=== PATIENT | male | born 1945 | race Caucasian/White ===

== ENCOUNTER 2017-03-12 10:52 | Outpatient (CLI) | payer MEDICARE, BC ==
--- NOTE | 2017-03-12 13:16 | RAD ---
LUMBAR SPINE FOUR VIEWS: History: 71-year-old male with low back pain and lumbar radiculopathy. FINDINGS: Laminectomy changes at L3 through L5. No evidence for abnormal translation between flexion and exten soto. No acute fracture. IMPRESSION: Lower lumbar spine laminectomy. No abnormal translation between flexion and extension. Lumbar spondy losis. No acute fracture. POS: [facility]
== END 2017-03-12 10:53 | disposition home or self-care (01) ==
LOC: SCSRAD 10:52
PROVIDERS: ATTEND Surgery
DX: M47.26 Other spondylosis with radiculopathy, lumbar region (principal); Z98.890 Other specified postprocedural states
CPT/HCPCS: 72120

== ENCOUNTER 2017-05-10 09:51 | Outpatient (CLI) | payer MEDICARE, BC ==
--- NOTE | 2017-05-10 11:58 | RAD ---
TWO VIEWS OF THE LEFT HIP: DTAE: 05/10/17. COMPARISON: None. HISTORY: Pain radiating through the legs, pain. FINDINGS: There are severe degenerative changes involving the left hip. There is femoral head flattening on th e left with severe left hip joint space narrowing as well as osteophyte formation and subchondral scl erosis involving the acetabular roof and the femoral head. There is no displaced fracture or evidenc e of dislocation seen. IMPRESSION: Severe degenerative changes of the left hip. No displaced fracture or evidence of dislocation seen. POS: [facility]
--- NOTE | 2017-05-10 11:59 | RAD ---
2 VIEWS RIGHT HIP: Date: 05/10/17 COMPARISON: None. HISTORY: Pain, radiculopathy. FINDINGS: There is severe degenerative change involving the right hip with complete loss of joint space and sig nificant flattening of the femoral head with subchondral sclerosis and lucency. There is osteophyte f ormation and subchondral sclerosis of the acetabular roof. The abnormal density and flattening of the right femoral head may signify associated a vascular necrosis. IMPRESSION: Severe degenerative change of the right hip. Possible avascular necrosis of the right femoral head. POS: [facility]
--- NOTE | 2017-05-10 12:03 | RAD ---
4 VIEWS LEFT KNEE: Date: 05/19/17 COMPARISON: None. HISTORY: Left knee pain that radiates down through both legs. FINDINGS: Four views of the left knee show no evidence of acute fracture or dislocation. Calcification is seen in the menisci, consistent with CPPD. No significant osteophytes are seen in any of the three compart ments. IMPRESSION: 1. Calcifications of menisci can be seen with CPPD. 2. No evidence of acute osseous abnormality of the left knee. POS: [facility]
--- NOTE | 2017-05-10 12:08 | RAD ---
FOUR VIEWS OF THE RIGHT KNEE: HISTORY: Right knee pain. COMPARISON: None. FINDINGS: Four views of the right knee show no evidence of acute fracture or dislocation. There is calcificati on in the menisci, consistent with CPPD. There are moderate tricompartmental osteophytes, consistent with osteoarthritis. IMPRESSION: 1. Moderate right knee osteoarthritis. 2. Calcium pyrophosphate deposition disease. POS: [facility]
== END 2017-05-10 09:52 | disposition home or self-care (01) ==
LOC: TBSIIMAG 09:51
PROVIDERS: ATTEND Surgery
DX: M25.551 Pain in right hip (principal); M25.552 Pain in left hip; M79.604 Pain in right leg; M79.605 Pain in left leg; M17.11 Unilateral primary osteoarthritis, right knee; M16.0 Bilateral primary osteoarthritis of hip; M25.862 Other specified joint disorders, left knee

== ENCOUNTER 2017-05-20 09:08 | Outpatient (CLI) | payer MEDICARE, BC ==
--- NOTE | 2017-05-20 11:29 | MRI ---
MRI CERVICAL SPINE WITHOUT CONTRAST: Date: 05/20/17 Multiplanar, multisequential imaging cervical spine obtained. HISTORY: Cervical pain. Spondylosis. FINDINGS: The cervical vertebra maintain height. There is mild posterior subluxation at C4-5 and slightly more prominent posterior subluxation at C5-6 measured at approximately 5.0 mm. Loss of disc space noted at C4-5, C5-6, and C6-7. Anterior osteophytes are prominent at C4-5 and C5-6. At C2-3, posterior disc bulge flattens the thecal sac and mildly effaces the anterior subarachnoid s pace. At C3-4, posterior disc bulge and spondylosis abuts the anterior cord. Mild left foraminal narrowing due to uncinate hypertrophy. At C4-5, disc bulge and spondylosis impinges on and mildly indents and flattens the anterior cord. Ri ght foraminal stenosis secondary to facet and uncinate hypertrophy and mild left foraminal encroachme nt. At C5-6, disc bulge and spondylosis impinge on and indent the anterior cord. Bilateral foraminal sten osis due to hypertrophic change. At C6-7, disc bulge and spondylosis abut and mildly flatten the anterior cord. Bilateral foraminal st enosis secondary to facet and uncinate hypertrophy. Cord signal appears preserved with no definite evidence of myelomalacia by MRI. IMPRESSION: Spondylytic changes at C3-4, C4-5, C5-6, and C6-7. There is impingement on the cord with spinal canal stenosis at C4-5 and C5-6. Foraminal stenosis at multiple levels as described. POS: [facility]
--- NOTE | 2017-05-20 14:37 | RAD ---
CERVICAL SPINE 4 VIEWS: HISTORY: Spondylosis. FINDINGS: Moderate degenerative changes of the cervical spine noted. There is loss of disk space seen at C4-5, C5-6, and C6-7 levels. Prominent hypertrophic changes are noted with anterior osteophytes and poste rior spondylitic changes at multiple levels. Mild posterior subluxation with prominent posterior spo ndylitic changes encroaching into the canal at C4-5 and C5-6 levels. No compression deformity. IMPRESSION: Moderate to severe degenerative changes of the cervical spine, most prominent at C4-5, C5-6, and C6-7 levels as described above. POS: [facility]
== END 2017-05-20 09:09 | disposition home or self-care (01) ==
LOC: SCSMRI 09:08
PROVIDERS: ATTEND Surgery
DX: M47.12 Other spondylosis with myelopathy, cervical region (principal); S13.150A Subluxation of C4/C5 cervical vertebrae, initial encounter; S13.160A Subluxation of C5/C6 cervical vertebrae, initial encounter; M48.02 Spinal stenosis, cervical region; M99.51 Intervertebral disc stenosis of neural canal of cervical region
CPT/HCPCS: 72040; 72141

== ENCOUNTER 2017-05-21 12:00 | Outpatient (CLI) | payer MEDICARE, BC ==
--- NOTE | 2017-05-21 13:57 | RAD ---
PA AND LATERAL CHEST: History: Pre-operative chest radiograph. FINDINGS: Images demonstrate right humeral rotator cuff repair screws in place. No evidence of acute fracture, subluxation, or bony lesions seen. Osteoporosis of the thoracic spine is present. IMPRESSION: Unremarkable two views chest. POS: [facility]
[2017-05-21 15:11] LABS: #Eosinphils 0.3 thou/uL (0.0-0.7); #Lymphocytes 1.4 thou/uL (1.20-3.40); #Monocytes 0.6 thou/uL (0.11-0.59); #Neutrophils 4.3 thou/uL (1.40-6.50); %Basophils 0.3 % (0.0-1.0); %Eosinophils 4.8 % (0.0-10.0); %Lymphocytes 21.8 % (21.0-51.0); %Monocytes 8.4 % (0.0-10.0); %Neutrophils 64.7 % (42.0-75.0); Hemoglobin 14.2 g/dL (14.0-18.0); Mean Corpuscular HGB CONC 31.9 g/dL (32.0-36.0); Mean Corpuscular Hemoglobin 30.1 pg (27.0-31.0); Mean Corpuscular Volume 94.6 fl (80.0-94.0); Mean Platelet Volume 7.6 fL (7.4-10.4); Platelet Count 240 thou/uL (130-400); RBC Distribution Width 12.9 % (11.5-14.5); White Blood Cell (WBC) Count 6.6 thou/uL (4.8-10.8)
[2017-05-21 15:12] LABS: Bilirubin Negative (Negative); Blood, Urine Negative (Negative); Clarity CLEAR (Clear); Glucose, Urine (Dipstick) Negative (Negative); Leukocyte Negative (Negative); Nitrite Negative (Negative); Protein, Urine (Dipstick) Negative (Neg-Trace); Specific Gravity, Urine 1.022 (1.002-1.036); Urobilinogen 0.2 mg/dL (0.2-1.0)
[2017-05-21 15:17] LABS: Bacteria/HPF None Seen HPF (None Seen); Hyaline Casts/LPF 0-3 HYALINE CAST LPF (0-3 Hyaline); RBC/HPF 0-3 HPF (0-3); Squamous Epithelial None Seen HPF (0-3); WBC/HPF 0-3 HPF (0-3)
[2017-05-21 15:19] LABS: INR-International Normal Ratio 0.9; PTT 26.9 SEC (22.9-36.1); Prothrombin Time 12.5 SEC (12.0-14.7)
[2017-05-21 15:33] LABS: Anion Gap 16 mmol/L (10-20); BUN (Urea Nitrogen) 21 mg/dL (8.4-25.7); Calc. Creatinine Clearance 0 mL/min (70-130); Calcium 9.8 mg/dL (7.8-10.44); Carbon Dioxide 24 mmol/L (23-31); Chloride 102 mmol/L (98-107); Estimated GFR-MDRD 80; Glucose 89 mg/dL (83-110); Potassium 4.3 mmol/L (3.5-5.1); Sodium 138 mmol/L (136-145)
--- NOTE | 2017-05-21 23:46 | EKG ---
Test Reason : Blood Pressure : / mmHG Vent. Rate : 072 BPM Atrial Rate : 072 BPM P-R Int : 156 ms QRS Dur : 082 ms QT Int : 396 ms P-R-T Axes : 019 002 015 degrees QTc Int : 433 ms Normal sinus rhythm Normal ECG When compared with ECG of 09-JAN-2017 09:32, Premature ventricular complexes are no longer Present Confirmed by Sasha LORENZO ([id number]) on 05/21/2017 11:45:57 PM Referred By: TRACI Confirmed By:Sasha LORENZO
== END 2017-05-21 12:01 | disposition home or self-care (01) ==
LOC: LABBT 12:00
PROVIDERS: ATTEND Orthopaedic Surgery
DX: Z01.818 Encounter for other preprocedural examination (principal); M87.9 Osteonecrosis, unspecified; M87.052 Idiopathic aseptic necrosis of left femur
CPT/HCPCS: 71046; 80048; 81001; 85025; 85610; 85730; 86850; 86900; 86901; 87081; 93005; 93010

== ENCOUNTER 2017-05-21 13:00 | Inpatient (IN) | payer MEDICARE, BC ==
[2017-05-28] MEDS ORDERED: Vancomycin HCl 1.5 GM in Sodium Chloride 0.9% 250 ML 300 ML IVPB SCH (10:00)
[2017-05-28] MEDS ORDERED: Tranexamic Acid 1,000 MG/100 ML BAG ONE ×2 (10:09→15:31)
[2017-05-28] MEDS ORDERED: CEFAZOLIN/Water 2 GM/20 ML SYRINGE ONE (10:09)
[2017-05-28] MEDS ORDERED: Midazolam HCl 2 mg/2 ml Vial ONE ×2 (10:52→12:11)
[2017-05-28] MEDS ORDERED: Fentanyl 100 MCG/2 ML VIAL ONE ×6 (10:53→15:57)
[2017-05-28] MEDS ORDERED: diphenhydrAMINE 25 MG CAP PO PRN ×3 (11:11→16:49)
[2017-05-28] MEDS ORDERED: Ondansetron HCl/PF 4 MG/2 ML Vial IVP PRN ×4 (11:11→16:49)
[2017-05-28] MEDS ORDERED: traMADol HCl 50 MG TAB PO PRN ×3 (11:11→13:15)
[2017-05-28] MEDS ORDERED: Acetaminophen 325 MG TAB PO PRN (11:11)
[2017-05-28] MEDS ORDERED: HYDROcodone/Acetaminophen 10/325 mg Tablet PO PRN ×2 (11:11)
[2017-05-28] MEDS ORDERED: Fentanyl 100 MCG/2 ML VIAL SLOW IVP PRN ×2 (11:11)
[2017-05-28] MEDS ORDERED: Promethazine HCl 25 MG/ML VIAL IM PRN ×4 (11:11→16:49)
[2017-05-28] MEDS ORDERED: Zolpidem Tartrate 5 MG TAB PO PRN ×3 (11:11→16:49)
[2017-05-28] MEDS ORDERED: Polyethylene Glycol 3350 17 GM Packet PO PRN (11:13)
[2017-05-28] MEDS ORDERED: tiZANidine HCl 4 MG TAB PO PRN (11:13)
[2017-05-28] MEDS ORDERED: Tranexamic Acid 1,000 MG in Sodium Chloride 0.9% 100 ML IVPB SCH (11:15)
[2017-05-28] MEDS ORDERED: Naloxone HCl 0.4 mg/ml Vial IVP PRN (13:15)
[2017-05-28] MEDS ORDERED: Ketorolac Tromethamine 30 MG/ML VIAL IVP PRN (13:15)
[2017-05-28] MEDS ORDERED: Bupivacaine 0.25% 10 ML VIAL EPIDURAL PRN (13:15)
[2017-05-28] MEDS ORDERED: Eucerin (Mineral Oil/Petrolatum,White) 30 gm Jar TOP PRN (13:15)
[2017-05-28] MEDS ORDERED: Naloxone HCl 0.4 mg/ml Vial IV PRN ×2 (13:15→16:49)
[2017-05-28] MEDS ORDERED: Promethazine HCl 25 MG SUPP PR PRN (13:15)
[2017-05-28] MEDS ORDERED: HYDROcodone/Acetaminophen 5/325 mg Tablet PO PRN ×2 (13:15)
[2017-05-28] MEDS ORDERED: Fentanyl/Bupivacaine 250 ML in Premix Bag 1 BAG EPIDURAL SCH (13:15)
[2017-05-28] MEDS ORDERED: diphenhydrAMINE 50 MG/ML VIAL IM PRN ×2 (13:15→16:49)
[2017-05-28] MEDS ORDERED: diphenhydrAMINE 50 MG/ML VIAL IVP PRN ×2 (13:15→16:49)
[2017-05-28] MEDS ORDERED: Ropivacaine 0.2% HCl/PF 20 ML ONE (13:22)
[2017-05-28] MEDS ORDERED: Ketorolac Tromethamine 30 MG/ML VIAL IVP SCH (14:00)
[2017-05-28] MEDS ORDERED: Propofol 200 MG/20 ML VIAL ONE (14:45)
[2017-05-28] MEDS ORDERED: Ondansetron HCl/PF 4 MG/2 ML Vial ONE (14:45)
[2017-05-28] MEDS ORDERED: ePHEDrine/0.9% NaCl/PF SYRINGE 50 mg/10 ml ONE (14:45)
[2017-05-28] MEDS ORDERED: Promethazine HCl 25 MG/ML VIAL SLOW IVP PRN (15:20)
--- NOTE | 2017-05-28 15:54 | RAD ---
TWO VIEWS RIGHT HIP: Date: 05-28-17 Comparison: 05-10-17 History: Evaluate hip following arthroplasty. FINDINGS: There is a right hip arthroplasty in place with no evidence of a hardware failure. No acute fracture or dislocation. There is post-operative gas seen lateral to the proximal right femoral shaft. IMPRESSION: Post-operative changes consistent with recent right total hip arthroplasty. POS: [facility]
[2017-05-28] MEDS ORDERED: HYDROmorphone 0.5 MG/0.5 ML SYRINGE ONE ×2 (16:08→16:35)
[2017-05-28] MEDS ORDERED: HYDROmorphone 0.5 MG/0.5 ML SYRINGE SLOW IVP PRN (16:21)
[2017-05-28] MEDS ORDERED: Fentanyl 5000 MCG/250 ML CADD IVPB PRN (16:49)
[2017-05-28] MEDS ORDERED: Communication Order-Pharmacy FS SCH (17:00)
[2017-05-28] MEDS ORDERED: Fentanyl 20 MCG/ML 250 ML ONE (17:05)
[2017-05-28] MEDS ORDERED: CEFAZOLIN/Water 2 GM/20 ML SYRINGE SLOW IVP SCH (18:00)
[2017-05-28] MEDS: Sodium Chloride 0.9% 1,000 ML IV SCH ×2 (19:27→21:28)
[2017-05-28] MEDS: Ketorolac Tromethamine 30 MG/ML VIAL IVP SCH (19:56)
[2017-05-28] MEDS: Tamsulosin HCl 0.4 MG CAP PO SCH (21:21)
[2017-05-28] MEDS: CEFAZOLIN/Water 2 GM/20 ML SYRINGE SLOW IVP SCH (22:01)
[2017-05-29] MEDS: Ketorolac Tromethamine 30 MG/ML VIAL IVP SCH ×4 (00:31→17:49)
--- NOTE | 2017-05-29 02:35 | OP ---
DATE OF PROCEDURE: 05/28/2017 PREOPERATIVE DIAGNOSIS: Avascular necrosis with severe arthritis of the right hip. POSTOPERATIVE DIAGNOSIS: Avascular necrosis with severe arthritis of the right hip. SURGEON: Pio Mi M.D. APPLICATION SECURITY SPECIALIST: Bran Moreno PA-C BLOOD LOSS: 400. SPECIMEN: None. DRAINS: None. COMPLICATIONS: None. FINDINGS AT SURGERY: Extremely stiff hip with scarring between the night IT band and the gluteus med ius. The gluteus minimus was also very adherent to the gluteus medius, however, had converted to fat and on opening of the gluteus medius layer, there was quite a bit of liquefied necrotic tissue. IMPLANTS USED AT SURGERY: Size 54 acetabulum [place] Accolade a size 4 stem, [place] Accolade a size 36 mm E-liner, and a 36 mm -5 head. PROCEDURE IN DETAIL: The patient was taken to the operating where general anesthesia was induced. H e was placed in left lateral decubitus position, right leg was prepped and draped in the usual steril e fashion. I made a standard anterolateral approach. The IT band and all of the tissues were very s tuck together similar to what would be seen with revision of total hip. The IT band was teased off o f the abductors and saved for later closure. Anterior 1/3 abductor mechanism was taken down and the gluteus medius appeared to have good with the gluteus minimus was in very poor condition. There was liquefied necrosis and just cloudy liquid in this layer along with fatty layer, which could not be pr esent, and no significant gluteus minimus anteriorly. Capsule was excised. The hip was dislocated. Femoral neck was cut with an oscillating saw. The acetabulum was sequentially reamed up to size 53- 54 mm cup was impacted into place, the liner was deployed and osteophytes were removed from the luanne ns of the acetabulum. Attention was turned to the femur, which was opened with T handle and broached up to a size 4, standard appeared to give the most appropriate size. Canal fit instability, I franklyn grullon used a -5 head because of difficulties with reduction. His hip had been short for quite a long t ilir and was very tight. This gave good stability throughout a range of motion. Trials were removed and irrigation performed. Permanent implants were impacted into place. The abductor mechanism was r epaired with #5 Ethibond and #2 Vicryl. The IT band was repaired with #2 Vicryl and #2 Quill, subcut aneous was closed with 0 Quill, skin was closed with 2-0 Monoderm. Skin glue was applied. There wer e no complications.
[2017-05-29 06:04] LABS: Hemoglobin 11.5 g/dL (14.0-18.0); Mean Corpuscular Hemoglobin 30.2 pg (27.0-31.0); Mean Corpuscular Volume 94.4 fl (80.0-94.0); Mean Platelet Volume 7.3 fL (7.4-10.4); Platelet Count 170 thou/uL (130-400); RBC Distribution Width 12.6 % (11.5-14.5); Red Blood Cell (RBC) Count 3.79 mill/uL (4.70-6.10); White Blood Cell (WBC) Count 8.2 thou/uL (4.8-10.8)
[2017-05-29] MEDS: CEFAZOLIN/Water 2 GM/20 ML SYRINGE SLOW IVP SCH (07:03)
[2017-05-29] MEDS ORDERED: HYDROcodone/Acetaminophen 10/325 mg Tablet PO PRN (08:28)
[2017-05-29] MEDS: Gabapentin 300 MG CAP PO SCH (08:48)
[2017-05-29] MEDS: Senokot S 8.6-50 MG TAB PO SCH ×2 (08:48→20:28)
[2017-05-29] MEDS: Sodium Chloride 0.9% 1,000 ML IV SCH ×2 (08:49→19:26)
[2017-05-29] MEDS: Ferrous Gluconate 324 MG TAB PO SCH ×2 (08:49→17:49)
[2017-05-29] MEDS: Multivitamin W/ Minerals 1 TAB PO SCH (08:49)
[2017-05-29] MEDS: Lisinopril 20 MG TAB PO SCH (08:49)
[2017-05-29] MEDS ORDERED: Lisinopril 20 MG TAB PO SCH (09:00)
[2017-05-29] MEDS: HYDROcodone/Acetaminophen 10/325 mg Tablet PO PRN (09:56)
[2017-05-29 12:48] VITALS: BMI 30.4
[2017-05-29] MEDS: Tamsulosin HCl 0.4 MG CAP PO SCH (20:28)
[2017-05-30] MEDS: Ketorolac Tromethamine 30 MG/ML VIAL IVP SCH ×3 (01:36→11:50)
[2017-05-30] MEDS: Sodium Chloride 0.9% 1,000 ML IV SCH ×2 (03:23→13:28)
[2017-05-30 06:05] LABS: Hemoglobin 10.3 g/dL (14.0-18.0); Mean Corpuscular HGB CONC 32.3 g/dL (32.0-36.0); Mean Corpuscular Hemoglobin 30.4 pg (27.0-31.0); Mean Platelet Volume 7.6 fL (7.4-10.4); Platelet Count 156 thou/uL (130-400); RBC Distribution Width 12.6 % (11.5-14.5); White Blood Cell (WBC) Count 9.4 thou/uL (4.8-10.8)
[2017-05-30] MEDS: HYDROcodone/Acetaminophen 10/325 mg Tablet PO PRN (08:53)
[2017-05-30] MEDS: Ferrous Gluconate 324 MG TAB PO SCH (08:56)
[2017-05-30] MEDS: Gabapentin 300 MG CAP PO SCH (08:56)
[2017-05-30] MEDS: Senokot S 8.6-50 MG TAB PO SCH (08:56)
[2017-05-30] MEDS: Lisinopril 20 MG TAB PO SCH (08:57)
[2017-05-30] MEDS: Multivitamin W/ Minerals 1 TAB PO SCH (08:57)
[2017-05-30 09:05] VITALS: TEMP 98.3
[2017-05-30 12:25] VITALS: BP 148/77
--- NOTE | 2017-05-31 15:17 | DIS ---
DATE OF ADMISSION: 05/28/2017. DATE OF DISCHARGE: 05/30/2017 ADMISSION DIAGNOSIS: End-stage bicompartmental osteoarthritis, right hip. DISCHARGE DIAGNOSIS: End-stage bicompartmental osteoarthritis, right hip. OPERATIVE PROCEDURE: Right total hip arthroplasty. CONSULTANTS: [facility] for acute postop pain management. [facility]. DISCHARGE DISPOSITION: Home with home health. BRIEF CLINICAL HISTORY: The patient was admitted to [facility] and underwent the above elective procedure on the date of admission without intra, jacqui, or postoperative complicat ion. The hospital course was unremarkable. At the time of discharge, the patient is afebrile, ambul atory without assistance utilizing a rolling walker in a full weightbearing fashion, tolerating a reg ular diet, and voiding without difficulty. The patient's incision is clean and closed without any er ythema. DISCHARGE MEDICATIONS: Please see medication reconciliation form. We will be happy to see the patient on an as needed basis between now and her next scheduled appointm ent. CONDITION ON DISCHARGE: Stable. PROGNOSIS: Good.
== END 2017-05-30 13:32 | disposition home health service (06) | DRG 470 ==
LOC: SJJU 05-28 09:11 → SURG A 05-28 18:19
PROVIDERS: ADMIT Orthopaedic Surgery; ATTEND Orthopaedic Surgery
PROC: 0SR90JA Replacement of Right Hip Joint with Synthetic Substitute, Uncemented, Open Approach (ICD-10-PCS; principal; 2017-05-28)
PROC: 3E0R3BZ Introduction of Anesthetic Agent into Spinal Canal, Percutaneous Approach (ICD-10-PCS; 2017-05-28)
DX: M87.051 Idiopathic aseptic necrosis of right femur (principal); Z87.891 Personal history of nicotine dependence
CPT/HCPCS: 36415; 85027; C1776; G8978-GP-CL; G8979-GP-CK; G8987-GO-CJ; G8988-GO-CJ; G8989-GO-CJ; J1170; J1885; J2250; J2405; J2704; J2795; J3010; J3370; J7050

== ENCOUNTER 2017-05-31 08:12 | Emergency (ER) | payer MEDICARE, BC ==
[2017-05-31 09:13] LABS: #Basophils 0.1 thou/uL (0.0-0.2); #Eosinphils 0.2 thou/uL (0.0-0.7); #Lymphocytes 0.8 thou/uL (1.20-3.40); #Monocytes 0.8 thou/uL (0.11-0.59); #Neutrophils 6.3 thou/uL (1.40-6.50); %Basophils 0.9 % (0.0-1.0); %Eosinophils 2.8 % (0.0-10.0); %Lymphocytes 9.3 % (21.0-51.0); %Monocytes 9.3 % (0.0-10.0); %Neutrophils 77.7 % (42.0-75.0); Hemoglobin 9.9 g/dL (14.0-18.0); Mean Corpuscular Hemoglobin 29.4 pg (27.0-31.0); Mean Corpuscular Volume 89.1 fl (80.0-94.0); Mean Platelet Volume 6.6 fL (7.4-10.4); Platelet Count 163 thou/uL (130-400); RBC Distribution Width 12.3 % (11.5-14.5); Red Blood Cell (RBC) Count 3.35 mill/uL (4.70-6.10); White Blood Cell (WBC) Count 8.1 thou/uL (4.8-10.8)
--- NOTE | 2017-05-31 09:40 | ULT ---
RIGHT LOWER EXTREMITY VENOUS DUPLEX ULTRASOUND INCLUDING COLOR AND SPECTRAL DOPPLER IMAGING: HISTORY: A 71-year-old male with a history of swelling and edema in the right leg, particularly the region of the right hip. FINDINGS: Exam performed from groin to ankle including visualized greater saphenous, common femoral, superficia l, profunda femoral, popliteal, trifurcation, and posterior tibial vein regions. There is phasic ruben w with normal compressibility and normal augmentation. No intraluminal thrombus. IMPRESSION: No evidence for deep venous thrombosis. POS: [facility]
[2017-05-31] MEDS ORDERED: Clindamycin 150 MG CAP ONE (10:06)
== END 2017-05-31 10:10 | disposition home or self-care (01) ==
LOC: SCSER 08:12
DX: T84.89XA Other specified complication of internal orthopedic prosthetic devices, implants and grafts, initial encounter (principal); M79.89 Other specified soft tissue disorders; I10 Essential (primary) hypertension
CPT/HCPCS: 36415; 85025

== ENCOUNTER 2017-08-01 13:14 | Outpatient (CLI) | payer MEDICARE, BC ==
[2017-08-01 14:31] LABS: #Eosinphils 0.3 thou/uL (0.0-0.7); #Lymphocytes 1.3 thou/uL (1.20-3.40); #Monocytes 0.7 thou/uL (0.11-0.59); #Neutrophils 5.5 thou/uL (1.40-6.50); %Basophils 0.4 % (0.0-1.0); %Eosinophils 3.6 % (0.0-10.0); %Lymphocytes 16.7 % (21.0-51.0); %Monocytes 8.3 % (0.0-10.0); Hemoglobin 13.9 g/dL (14.0-18.0); Mean Corpuscular HGB CONC 32.6 g/dL (32.0-36.0); Mean Corpuscular Hemoglobin 30.1 pg (27.0-31.0); Mean Corpuscular Volume 92.4 fl (80.0-94.0); Mean Platelet Volume 7.2 fL (7.4-10.4); Platelet Count 253 thou/uL (130-400); RBC Distribution Width 13.2 % (11.5-14.5); Red Blood Cell (RBC) Count 4.61 mill/uL (4.70-6.10); White Blood Cell (WBC) Count 7.8 thou/uL (4.8-10.8)
[2017-08-01 14:40] LABS: INR-International Normal Ratio 0.9; PTT 24.3 SEC (22.9-36.1); Prothrombin Time 12.3 SEC (12.0-14.7)
[2017-08-01 14:51] LABS: Anion Gap 10 mmol/L (10-20); BUN (Urea Nitrogen) 28 mg/dL (8.4-25.7); Calc. Creatinine Clearance 0 mL/min (70-130); Calcium 10.1 mg/dL (7.8-10.44); Carbon Dioxide 28 mmol/L (23-31); Chloride 103 mmol/L (98-107); Estimated GFR-MDRD 71; Glucose 125 mg/dL (83-110); Potassium 4.3 mmol/L (3.5-5.1); Sodium 137 mmol/L (136-145)
== END 2017-08-01 13:15 | disposition home or self-care (01) ==
LOC: LABBT 13:14
PROVIDERS: ATTEND Orthopaedic Surgery
DX: Z01.812 Encounter for preprocedural laboratory examination (principal); M16.12 Unilateral primary osteoarthritis, left hip
CPT/HCPCS: 80048; 85025; 85610; 85730; 86850; 86900; 86901; 87081

== ENCOUNTER 2017-08-01 14:00 | Inpatient (IN) | payer MEDICARE, BC ==
[2017-08-01 13:39] VITALS: BMI 30.8
[2017-08-06] MEDS ORDERED: CEFAZOLIN/Water 2 GM/20 ML SYRINGE ONE (05:56)
[2017-08-06] MEDS ORDERED: Fentanyl 100 MCG/2 ML VIAL ONE ×6 (06:14→09:24)
[2017-08-06] MEDS ORDERED: Vancomycin HCl 1.5 GM in Sodium Chloride 0.9% 250 ML 300 ML IVPB SCH (06:15)
[2017-08-06] MEDS ORDERED: Midazolam HCl 2 mg/2 ml Vial ONE (06:20)
[2017-08-06] MEDS ORDERED: traMADol HCl 50 MG TAB PO PRN ×2 (06:53→11:56)
[2017-08-06] MEDS ORDERED: Zolpidem Tartrate 5 MG TAB PO PRN ×2 (06:53→08:53)
[2017-08-06] MEDS ORDERED: Promethazine HCl 25 MG/ML VIAL IM PRN ×4 (06:53→08:53)
[2017-08-06] MEDS ORDERED: Fentanyl 100 MCG/2 ML VIAL SLOW IVP PRN ×2 (06:53)
[2017-08-06] MEDS ORDERED: Acetaminophen 325 MG TAB PO PRN (06:53)
[2017-08-06] MEDS ORDERED: HYDROcodone/Acetaminophen 10/325 mg Tablet PO PRN ×2 (06:53)
[2017-08-06] MEDS ORDERED: Ondansetron HCl/PF 4 MG/2 ML Vial IVP PRN ×4 (06:53→08:53)
[2017-08-06] MEDS ORDERED: diphenhydrAMINE 25 MG CAP PO PRN ×2 (06:53→08:53)
[2017-08-06] MEDS ORDERED: Tranexamic Acid 1,000 MG in Sodium Chloride 0.9% 100 ML IVPB SCH (07:00)
[2017-08-06] MEDS ORDERED: HYDROmorphone 2 MG/ML VIAL SLOW IVP PRN (08:24)
[2017-08-06] MEDS ORDERED: Promethazine HCl 25 MG/ML VIAL SLOW IVP PRN ×2 (08:24→08:53)
[2017-08-06] MEDS ORDERED: Fentanyl 5000 MCG/250 ML CADD IVPB PRN (08:53)
[2017-08-06] MEDS ORDERED: diphenhydrAMINE 50 MG/ML VIAL IVP PRN (08:53)
[2017-08-06] MEDS ORDERED: diphenhydrAMINE 50 MG/ML VIAL IM PRN (08:53)
[2017-08-06] MEDS ORDERED: Ketorolac Tromethamine 30 MG/ML VIAL IVP PRN (08:53)
[2017-08-06] MEDS ORDERED: Naloxone HCl 0.4 mg/ml Vial IV PRN (08:53)
[2017-08-06] MEDS: Aspirin 325 MG TAB PO SCH ×2 (09:00→21:16)
[2017-08-06] MEDS ORDERED: Communication Order-Pharmacy FS SCH (09:00)
[2017-08-06] MEDS ORDERED: HYDROmorphone 0.5 MG/0.5 ML SYRINGE ONE (09:11)
[2017-08-06] MEDS ORDERED: fentaNYL Citrate/PF 2,000 MCG in Sodium Chloride 0.9% 60 ML IV PRN (09:15)
--- NOTE | 2017-08-06 09:52 | RAD ---
TWO VIEWS LEFT HIP: Comparison: 05-10-17 History: Left hip arthroplasty. FINDINGS: Two views left hip shows the patient to be status post left hip arthroplasty without perihardware catalina ency or fracture. Soft tissue swelling and air in the tissues is from recent surgery. IMPRESSION: Status post left hip arthroplasty without evidence of complication. POS: [facility]
--- NOTE | 2017-08-06 11:17 | OP ---
PREOPERATIVE DIAGNOSIS: Degenerative joint disease, left hip with avascular necrosis of left hip. POSTOPERATIVE DIAGNOSIS: Degenerative joint disease, left hip with avascular necrosis of left hip. PROCEDURE: Left total hip arthroplasty. SURGEON: Pio Mi M.D. AIDS SOCIAL WORKER: Kymberly Jacobs PA-C BLOOD LOSS: 300 mL. SPECIMEN: None. DRAINS: None. COMPLICATIONS: None. IMPLANTS USED: [place] Accolade #4 stem, a PSL 50 mm cup, a 36 mm liner and a standard 36 mm metal h ead. PROCEDURE IN DETAIL: After informed consent was obtained in the preoperative holding area, the patie nt was taken to the operative suite where general anesthesia was induced. The patient was then posit ioned in the lateral decubitus position. The hip was then prepped and draped in usual sterile fashio n. The patient received preoperative antibiotics. Prior to incision, time-out was called and all me mbers of the surgical team agreed upon site, surgeon, and patient. After this, a longitudinal incisi on was made directly over the trochanter, noted by palpation extending 2 fingerbreadths above and bel ow the trochanter. The deeper subcutaneous layer was undermined with Bovie electrocautery. The ilio tibial band was encountered and incised sharply and the plane below this was developed bluntly. A [facility] retractor was placed to hold this opened. The lateral aspect of the trochanter and the abduct or muscles were encountered and then reflected anteriorly off the trochanter using Bovie electrocaute ry. Once this was completed, the anterior capsule was then encountered and identified and copious ca psulotomy was carried out, exposing the femoral neck and head. Dislocation maneuver was then performe d and an in situ provisional neck cut was then made using the oscillating saw. Attention was then tu rned to acetabular preparation and sequential reaming was carried out up to the appropriate diameter and a trial was then malleted into place with good firm resistance and no pullout. The permanent rosie tabular shell was then malleted squarely into place, as was the appropriate liner. Once completed, t he wound was copiously irrigated and attention was then turned to femoral preparation. Flexion and ex ternal rotation was performed of the exposed thigh and femoral elevators were then placed at the prox imal aspect of the wound. Canal finder was used to establish the length of the canal and sequential reaming was carried out, followed by broaching. Once the appropriate stability was established with the trial broaches with both flexion, extension and rotational stability, we did trial with neutral a nd 2 mm offset incremental necks. Once the appropriate size was decided upon, with good stability no carli with flexion, extension, internal and external rotation and shuck being negative, we removed the femoral trial broach and malletted into place the permanent prosthesis with good firm fit, which was also stable to rotation. Again, the hip felt very stable to flexion, extension, internal and externa l rotation. Leg lengths appeared near anatomic clinically and we were quite happy with prosthesis pl acement. Copious irrigation was then carried out through the entirety of the wound. Primary closure of the abductors was accomplished with interrupted #2 Vicryl [id number] stitches and the IT ban d was then closed with interrupted #2 Vicryl, oversewn with a #2 running barbed Quill stitch. Subcut aneous fascia was closed with running barbed Quill stitch and a subcuticular Monocryl barbed Quill st itch was used for skin closure and augmented with skin cement. A sterile dressing was applied. The p rocedure was terminated without any complication. All counts were correct. The patient was awakened in the operative suite and taken to the recovery room in stable condition.
[2017-08-06] MEDS ORDERED: Sodium Chloride 0.65% Nasal 44 ML BOT EA NARE PRN (11:55)
[2017-08-06] MEDS ORDERED: Chloraseptic Spray 180 ml Bottle PO PRN (11:55)
[2017-08-06] MEDS ORDERED: Mag-Al 1200 mg/1200 mg/30 ML UDCUP PO PRN (11:55)
[2017-08-06] MEDS ORDERED: Diabetic Tussin 200 MG/10 ML UDCUP PO PRN (11:55)
[2017-08-06] MEDS ORDERED: Artificial Tears 18 DROP/0.9 ML EA EYE PRN (11:55)
[2017-08-06] MEDS ORDERED: Loperamide HCl 2 MG CAP PO PRN (11:55)
[2017-08-06] MEDS ORDERED: hydrALAZINE 20 MG/ML VIAL SLOW IVP PRN (11:55)
[2017-08-06] MEDS ORDERED: Eucerin (Mineral Oil/Petrolatum,White) 30 gm Jar TOP PRN (11:55)
[2017-08-06] MEDS ORDERED: Senokot 8.6 MG TAB PO PRN (11:55)
[2017-08-06] MEDS ORDERED: Milk Of Magnesia 30 ML UDCUP PO PRN (11:55)
[2017-08-06] MEDS: Ferrous Gluconate 324 MG TAB PO SCH ×2 (11:56→21:16)
[2017-08-06] MEDS ORDERED: tiZANidine HCl 4 MG TAB PO PRN (11:56)
[2017-08-06] MEDS ORDERED: Polyethylene Glycol 3350 17 GM Packet PO PRN (11:56)
[2017-08-06] MEDS: Senokot S 8.6-50 MG TAB PO SCH ×2 (11:57→21:15)
[2017-08-06] MEDS: Multivitamin W/ Minerals 1 TAB PO SCH (11:57)
--- NOTE | 2017-08-06 12:00 | PDOC.PN ---
- Subjective Encounter Start Date: 08/06/17 Encounter Start Time: 01:30 -: old records requested/rev Subjective: admitted for left THR -: consulted for medical management Patient seen and examined. No new complaints. No overnight events - Objective Resuscitation Status: Resuscitation Status FULL:Full Resuscitation MAR Reviewed: Yes Vital Signs & Weight: Weight Weight 191 lb Radiology Reviewed by me: Yes (hip xray) Phys Exam - Physical Examination Constitutional: NAD HEENT: PERRLA, moist MMs, sclera anicteric Neck: no JVD, supple Respiratory: no wheezing, no rales, no rhonchi Cardiovascular: RRR, no significant murmur, no rub Gastrointestinal: soft, non-tender, no distention, positive bowel sounds Musculoskeletal: no edema, pulses present surgical site with dressing Neurological: non-focal, normal sensation, moves all 4 limbs Psychiatric: normal affect, A&O x 3 Skin: no rash, normal turgor Dx/Plan - Plan cont current plan of care, PT/OT * continue aspirin for DVT prophylaxis as per protocol * continue pepcid for GI prophylaxis * Code status: Full code * Home medication reconciled * continue PT/OT as per [facility] protocol treatment. * Pain control with pain meds * medication reviewed as below * symptomatic treatment * continue SURGEON'S ASSISTANT Review of Systems - Review of Systems Eyes: negative: Pain, Vision Change, Conjunctivae Inflammation, Eyelid Inflammation, Redness, Other ENT: negative: Ear Pain, Ear Discharge, Nose Pain, Nose Discharge, Nose Congestion, Mouth Pain, Mouth Swelling, Throat Pain, Throat Swelling, Other Respiratory: negative: Cough, Dry, Shortness of Breath, Hemoptysis, SOB with Excertion, Pleuritic Pain, Sputum, Wheezing Cardiovascular: negative: chest pain, palpitations, orthopnea, paroxysmal nocturnal dyspnea, edema, light headedness, other Gastrointestinal: negative: Nausea, Vomiting, Abdominal Pain, Diarrhea, Constipation, Melena, Hematochezia, Other Genitourinary: negative: Dysuria, Frequency, Incontinence, Hematuria, Retention , Other Musculoskeletal: negative: Neck Pain, Shoulder Pain, Arm Pain, Back Pain, Hand Pain, Leg Pain, Foot Pain, Other Skin: negative: Rash, Lesions, Eddie, Bruising, Other - Medications/Allergies Allergies/Adverse Reactions: Allergies Allergy/AdvReac Type Severity Reaction Status Date / Time No Known Allergies Allergy Verified 08/01/17 13:39 Medications: Current Medications Acetaminophen (Tylenol) 650 mg PO Q4H PRN PRN Reason: MOURA/ T > 101F; Mild Pain (1-3) Al Hydroxide/Mg Hydroxide (Maalox) 15 ml PO Q4H PRN PRN Reason: Heartburn or Indigestion Artificial Tears (Tears Naturale) 0 drop EA EYE PRN PRN PRN Reason: Dry Eyes Aspirin (Aspirin) 325 mg PO BID [facility] Last Admin: 08/06/17 09:00 Dose: Not Given Cefazolin Sodium (Ancef) 2 gm SLOW IVP Q8HR [facility] Stop: 08/06/17 22:01 Diphenhydramine HCl (Benadryl) 25 mg PO Q6H PRN PRN Reason: Itching Diphenhydramine HCl (Benadryl) 25 mg IVP Q3H PRN PRN Reason: Itching Diphenhydramine HCl (Benadryl) 25 mg PO Q3H PRN PRN Reason: Itching Diphenhydramine HCl (Benadryl) 25 mg IM Q3H PRN PRN Reason: Itching Famotidine (Pepcid) 20 mg PO BID [facility] Ferrous Gluconate (Fergon) 324 mg PO BID [facility] Last Admin: 08/06/17 11:56 Dose: Not Given Guaifenesin (Robitussin Sf) 200 mg PO Q4H PRN PRN Reason: Cough Hydralazine HCl (Apresoline) 10 mg SLOW IVP Q4H PRN PRN Reason: Systolic BP > 180 Sodium Chloride (Normal Saline 0.9%) 1,000 mls @ 100 mls/hr IV .Q10H [facility] Tranexamic Acid 1,000 mg/ (Sodium Chloride) 110 mls @ 200 mls/hr IVPB ONE [facility] Stop: 08/06/17 14:00 Fentanyl Citrate 2,000 mcg/ (Sodium Chloride) 100 mls @ 0 mls/hr IV INF PRN; As Directed PRN Reason: Pain Iron/Minerals/Multivitamins (Theragran M) 1 tab PO DAILY [facility] Last Admin: 08/06/17 11:57 Dose: Not Given Ketorolac Tromethamine (Toradol) 15 mg IVP Q6H PRN PRN Reason: Moderate Pain (4-6) Stop: 08/09/17 08:54 Lisinopril (Zestril) 20 mg PO QAM [facility] Loperamide HCl (Imodium) 2 mg PO PRN PRN PRN Reason: Diarrhea/Loose Stools Magnesium Hydroxide (Milk Of Magnesium) 30 ml PO DAILYPRN PRN PRN Reason: Constipation Mineral Oil/White Petrolatum (Eucerin Cream) 0 gm TOP BIDPRN PRN PRN Reason: Dry Skin Miscellaneous Information (Communication Order-Pharmacy) 1 each FS ONE [facility] Stop: 08/07/17 09:01 Naloxone HCl (Narcan) 0.2 mg IV Q5MIN PRN PRN Reason: Opiate Reversal Non-Formulary Medication (Cholecalciferol (Vitamin D3) [Vitamin D3]) 5,000 unit PO DAILY [facility] Non-Formulary Medication (Fish Oil/Dha/Epa [Fish Oil 1,200 Mg Fish Oil]) 1 cap PO BID [facility] Non-Formulary Medication (Mirabegron [Myrbetriq]) 1 tab PO QPM [facility] Non-Formulary Medication (Tizanidine Hcl [Tizanidine Hcl]) 4 mg PO Q8H PRN PRN Reason: Muscle Spasm Ondansetron HCl (Zofran) 4 mg IVP Q6H PRN PRN Reason: Nausea/Vomiting Ondansetron HCl (Zofran) 4 mg IVP Q6H PRN PRN Reason: Nausea/Vomiting Phenol (Chloraseptic [place] 180 Ml Bot) 0 ml PO PRN PRN PRN Reason: Sore Throat Polyethylene Glycol (Miralax) 17 gm PO DAILY PRN PRN Reason: Constipation Promethazine HCl (Phenergan) 12.5 mg IM Q4H PRN PRN Reason: Nausea/Vomiting Promethazine HCl (Phenergan) 12.5 mg IM Q4H PRN PRN Reason: Nausea/Vomiting Senna (Senokot) 2 tab PO HSPRN PRN PRN Reason: Constipation Senna/Docusate Sodium (Senokot S) 2 tab PO BID [facility] Last Admin: 08/06/17 11:57 Dose: Not Given Sodium Chloride (Flush - Normal Saline) 10 ml IVF PRN PRN PRN Reason: Saline Flush Sodium Chloride ([place] Nasal [place] 0.65%) 0 ml EA NARE QIDPRN PRN PRN Reason: Nasal Congestion Tamsulosin HCl (Flomax) mg PO QPM [facility] Tramadol HCl (Ultram) 50 mg PO Q6H PRN PRN Reason: Pain Zolpidem Tartrate (Ambien) 5 mg PO HSPRN PRN PRN Reason: Insomnia History of Present Illnes - History of Present Illness Reason for Visit: elective admission for left total hip replacement History of Present Illness: s/p left hip replacement consulted for medical management had right hip replacement in past currently on SURGEON'S ASSISTANT - Past Medical History Cardiac: HTN Musculoskeletal: Chronic low back pain, Osteoarthritis Renal/: Benign prostatic enlarg. - Past Surgical History Past Surgical History: Appendectomy, Other (back surgery X 2), Total Hip Replacement (bilateral), Tonsillectomy - Past Family History Family History: None - Past Social History Smoke: No Alcohol: None Drugs: None Lives: With Family Domestic Violence: Negative
[2017-08-06] MEDS ORDERED: Prevnar 13-Val Conj/PF 0.5 ML SYRINGE IM ONE (12:30)
[2017-08-06] MEDS ORDERED: PHENYLEPHRINE-NS 100 MCG/ML 10 ML SYRINGE ONE (13:15)
[2017-08-06] MEDS ORDERED: ePHEDrine/0.9% NaCl/PF SYRINGE 50 mg/10 ml ONE (13:15)
[2017-08-06] MEDS ORDERED: Glycopyrrolate 0.2 MG/ML 5 ML SYRINGE ONE (13:15)
[2017-08-06] MEDS ORDERED: Dexamethasone 20 MG/5 ML VIAL ONE (13:15)
[2017-08-06] MEDS ORDERED: Ondansetron HCl/PF 4 MG/2 ML Vial ONE (13:15)
[2017-08-06] MEDS ORDERED: Lidocaine 1% PF 5 ML VIAL ONE (13:15)
[2017-08-06] MEDS ORDERED: PROPOFOL 200 MG/20 ML VIAL ONE (13:15)
[2017-08-06] MEDS ORDERED: Ketorolac Tromethamine 30 MG/ML VIAL IVP SCH (14:00)
[2017-08-06] MEDS: CEFAZOLIN/Water 2 GM/20 ML SYRINGE SLOW IVP SCH ×2 (15:04→21:17)
[2017-08-06] MEDS: Sodium Chloride 0.9% 1,000 ML IV SCH ×2 (15:14→17:45)
[2017-08-06] MEDS: Tamsulosin HCl 0.4 MG CAP PO SCH (17:54)
[2017-08-06] MEDS: Fish Oil 1,000 MG CAP PO SCH (21:16)
[2017-08-06] MEDS: Famotidine 20 MG TAB PO SCH (21:16)
[2017-08-07] MEDS: Sodium Chloride 0.9% 1,000 ML IV SCH ×2 (03:54→18:25)
[2017-08-07 05:42] LABS: Hemoglobin 12.2 g/dL (14.0-18.0); Mean Corpuscular HGB CONC 32.6 g/dL (32.0-36.0); Mean Corpuscular Hemoglobin 30.7 pg (27.0-31.0); Mean Corpuscular Volume 94.3 fl (80.0-94.0); Mean Platelet Volume 7.4 fL (7.4-10.4); Platelet Count 226 thou/uL (130-400); Red Blood Cell (RBC) Count 3.97 mill/uL (4.70-6.10); White Blood Cell (WBC) Count 10.7 thou/uL (4.8-10.8)
--- NOTE | 2017-08-07 09:00 | PDOC.PN ---
- Subjective Encounter Start Date: 08/07/17 Encounter Start Time: 07:30 Patient seen and examined. No new complaints. No overnight events - Objective Resuscitation Status: Resuscitation Status FULL:Full Resuscitation MAR Reviewed: Yes Vital Signs & Weight: Vital Signs (12 hours) Temp Pulse Resp BP Pulse Ox 08/07/17 08:08 98.6 F 102 H 20 128/75 95 08/07/17 04:00 98.0 F 99 18 142/81 H 97 08/07/17 00:00 98.2 F 99 18 119/79 95 Weight Weight 191 lb I&O: 08/06/17 08/07/17 08/08/17 06:59 06:59 06:59 Intake Total 2080 Output Total 800 Balance 1280 Result Diagrams: 08/07/17 05:23 Phys Exam - Physical Examination Constitutional: NAD HEENT: PERRLA, moist MMs, sclera anicteric Neck: no JVD, supple Respiratory: no wheezing, no rales, no rhonchi Cardiovascular: RRR, no significant murmur, no rub Gastrointestinal: soft, non-tender, no distention, positive bowel sounds Musculoskeletal: no edema, pulses present surgical site with dressing at left hip Neurological: non-focal, normal sensation, moves all 4 limbs Lymphatic: no nodes Psychiatric: normal affect, A&O x 3 Skin: no rash, normal turgor Dx/Plan (1) Status post total hip replacement, left Code(s): Z96.642 - PRESENCE OF LEFT ARTIFICIAL HIP JOINT Status: Acute (2) BPH (benign prostatic hyperplasia) Code(s): N40.0 - BENIGN PROSTATIC HYPERPLASIA WITHOUT LOWER URINRY TRACT SYMP Status: Chronic (3) Hypertension Code(s): I10 - ESSENTIAL (PRIMARY) HYPERTENSION Status: Chronic (4) Obesity (BMI 30.0-34.9) Code(s): E66.9 - OBESITY, UNSPECIFIED Status: Chronic - Plan cont current plan of care, PT/OT, certified social workers in health care * continue aspirin for DVT prophylaxis as per protocol * continue pepcid for GI prophylaxis * Code status: Full code * continue Home medication * continue PT/OT as per [facility] protocol treatment. * Pain controlled with OPEN HEARTH FURNACE OPERATOR HELPER * medication reviewed as below * symptomatic treatment * will sign off * call if needed Review of Systems - Review of Systems Eyes: negative: Pain, Vision Change, Conjunctivae Inflammation, Eyelid Inflammation, Redness, Other ENT: negative: Ear Pain, Ear Discharge, Nose Pain, Nose Discharge, Nose Congestion, Mouth Pain, Mouth Swelling, Throat Pain, Throat Swelling, Other Respiratory: negative: Cough, Dry, Shortness of Breath, Hemoptysis, SOB with Excertion, Pleuritic Pain, Sputum, Wheezing Cardiovascular: negative: chest pain, palpitations, orthopnea, paroxysmal nocturnal dyspnea, edema, light headedness, other Gastrointestinal: negative: Nausea, Vomiting, Abdominal Pain, Diarrhea, Constipation, Melena, Hematochezia, Other Genitourinary: negative: Dysuria, Frequency, Incontinence, Hematuria, Retention , Other Musculoskeletal: negative: Neck Pain, Shoulder Pain, Arm Pain, Back Pain, Hand Pain, Leg Pain, Foot Pain, Other Skin: negative: Rash, Lesions, Eddie, Bruising, Other - Medications/Allergies Allergies/Adverse Reactions: Allergies Allergy/AdvReac Type Severity Reaction Status Date / Time No Known Allergies Allergy Verified 08/01/17 13:39 Medications: Current Medications Acetaminophen (Tylenol) 650 mg PO Q4H PRN PRN Reason: MOURA/ T > 101F; Mild Pain (1-3) Al Hydroxide/Mg Hydroxide (Maalox) 15 ml PO Q4H PRN PRN Reason: Heartburn or Indigestion Artificial Tears (Tears Naturale) 0 drop EA EYE PRN PRN PRN Reason: Dry Eyes Aspirin (Aspirin) 325 mg PO BID [facility] Last Admin: 08/06/17 21:16 Dose: 325 mg Cholecalciferol (Vitamin D3) 5,000 units PO DAILY [facility] Diphenhydramine HCl (Benadryl) 25 mg IVP Q3H PRN PRN Reason: Itching Diphenhydramine HCl (Benadryl) 25 mg PO Q3H PRN PRN Reason: Itching Diphenhydramine HCl (Benadryl) 25 mg IM Q3H PRN PRN Reason: Itching Famotidine (Pepcid) 20 mg PO BID [facility] Last Admin: 08/06/17 21:16 Dose: 20 mg Ferrous Gluconate (Fergon) 324 mg PO BID [facility] Last Admin: 08/06/17 21:16 Dose: 324 mg Fish Oil (Fish Oil) 1,000 mg PO BID [facility] Last Admin: 08/06/17 21:16 Dose: 1,000 mg Guaifenesin (Robitussin Sf) 200 mg PO Q4H PRN PRN Reason: Cough Hydralazine HCl (Apresoline) 10 mg SLOW IVP Q4H PRN PRN Reason: Systolic BP > 180 Sodium Chloride (Normal Saline 0.9%) 1,000 mls @ 100 mls/hr IV .Q10H [facility] Last Admin: 08/07/17 03:54 Dose: Not Given Fentanyl Citrate 2,000 mcg/ (Sodium Chloride) 100 mls @ 0 mls/hr IV INF PRN; As Directed PRN Reason: Pain Iron/Minerals/Multivitamins (Theragran M) 1 tab PO DAILY [facility] Last Admin: 08/06/17 11:57 Dose: Not Given Ketorolac Tromethamine (Toradol) 15 mg IVP Q6H PRN PRN Reason: Moderate Pain (4-6) Stop: 08/09/17 08:54 Lisinopril (Zestril) 20 mg PO QAM [facility] Loperamide HCl (Imodium) 2 mg PO PRN PRN PRN Reason: Diarrhea/Loose Stools Magnesium Hydroxide (Milk Of Magnesium) 30 ml PO DAILYPRN PRN PRN Reason: Constipation Mineral Oil/White Petrolatum (Eucerin Cream) 0 gm TOP BIDPRN PRN PRN Reason: Dry Skin Mirabegron (Myrbetriq Er) 50 mg PO QPM [facility] Last Admin: 08/06/17 17:54 Dose: 50 mg Miscellaneous Information (Communication Order-Pharmacy) 1 each FS ONE [facility] Stop: 08/07/17 09:01 Naloxone HCl (Narcan) 0.2 mg IV Q5MIN PRN PRN Reason: Opiate Reversal Ondansetron HCl (Zofran) 4 mg IVP Q6H PRN PRN Reason: Nausea/Vomiting Phenol (Chloraseptic [place] 180 Ml Bot) 0 ml PO PRN PRN PRN Reason: Sore Throat Polyethylene Glycol (Miralax) 17 gm PO DAILY PRN PRN Reason: Constipation Promethazine HCl (Phenergan) 12.5 mg IM Q4H PRN PRN Reason: Nausea/Vomiting Senna (Senokot) 2 tab PO HSPRN PRN PRN Reason: Constipation Senna/Docusate Sodium (Senokot S) 2 tab PO BID [facility] Last Admin: 08/06/17 21:15 Dose: 2 tab Sodium Chloride (Flush - Normal Saline) 10 ml IVF PRN PRN PRN Reason: Saline Flush Sodium Chloride ([place] Nasal [place]eland 0.65%) 0 ml EA NARE QIDPRN PRN PRN Reason: Nasal Congestion Tamsulosin HCl (Flomax) 0.4 mg PO QPM DIANDRA Last Admin: 08/06/17 17:54 Dose: 0.4 mg Tizanidine HCl (Zanaflex) 4 mg PO Q8H PRN PRN Reason: Muscle Spasm Tramadol HCl (Ultram) 50 mg PO Q6H PRN PRN Reason: Pain Zolpidem Tartrate (Ambien) 5 mg PO HSPRN PRN PRN Reason: Insomnia
[2017-08-07] MEDS: Ferrous Gluconate 324 MG TAB PO SCH ×2 (09:16→20:28)
[2017-08-07] MEDS: Fish Oil 1,000 MG CAP PO SCH ×2 (09:18→20:28)
[2017-08-07] MEDS: Senokot S 8.6-50 MG TAB PO SCH ×2 (09:18→20:28)
[2017-08-07] MEDS: Aspirin 325 MG TAB PO SCH ×2 (09:18→20:28)
[2017-08-07] MEDS: Famotidine 20 MG TAB PO SCH ×2 (09:19→20:27)
[2017-08-07] MEDS: Lisinopril 20 MG TAB PO SCH (09:19)
[2017-08-07] MEDS: Multivitamin W/ Minerals 1 TAB PO SCH (09:19)
--- NOTE | 2017-08-07 11:44 | DIS ---
TRANSFER OF CARE NOTE DATE OF ADMISSION: 08/06/2017 DATE OF CONSULT: 08/06/2017 DATE OF DISCHARGE: Pending. PRIMARY CARE PHYSICIAN: Dr. Figueroa. PRIMARY DISCHARGE DIAGNOSES: Status post left total hip replacement. SECONDARY DISCHARGE DIAGNOSES: Benign enlargement of prostate, hypertension, obesity with BMI 30. PRIMARY PROCEDURE AND OPERATIONS: Left hip replacement. RADIOLOGICAL INVESTIGATION: Hip x-ray. SIGNIFICANT LABORATORY DATA: Hemoglobin 12.2. DISCHARGE MEDICATIONS: Pain medication will be given by primary team. Aspirin will be given for DVT prophylaxis, vitamin D3 5000 units p.o. daily, fish oil 1 capsule p.o. b.i.d., lisinopril 20 mg p.o. daily, mirabegron 50 mg p.o. daily, MiraLax 17 grams p.o. daily, Red Yeast Rice 600 mg p.o. b.i.d., Flomax 0.4 mg p.o. daily, Zanaflex 4 mg q.8 hours p.r.n., tramadol 50 mg p.o. q.6 hourly p.r.n. CONTRAINDICATIONS: None. CODE STATUS: FULL CODE. INPATIENT CONSULTANTS: Dr. Mi was primary while in hospital. Sound team was consulted for medic al comanagement. TEST RESULTS PENDING ON DISCHARGE: None. ALLERGIES: No known drug allergy. DISCHARGE PLAN: Post hospital, the patient will follow up with primary care physician, Dr. Pio martin as instructed. HOSPITAL COURSE: The patient is a 71-year-old male who was electively admitted by Dr. Pio Mi f or left total hip replacement, which was done on 08/06/2017. After surgery, [facility] team was consulted for medical comanagement. Patient's medical problem remains stable. We resumed the patient's home medication while in hospital. The patient's pain was controlled with PLUG MAKER. Patient did very well wit [facility] protocol treatment. As the patient's medical problem was stable and the patient does not need any ongoing medical need an d that is why we are signing off. The patient will resume all his home medication upon discharge. T he patient will be given aspirin for DVT prophylaxis. The patient is seen and examined at bedside today. Please see my progress note from today for furfabian r plans.
[2017-08-07] MEDS: Tamsulosin HCl 0.4 MG CAP PO SCH (20:28)
[2017-08-08] MEDS: Sodium Chloride 0.9% 1,000 ML IV SCH ×3 (00:39→14:37)
[2017-08-08 07:54] LABS: Hemoglobin 10.5 g/dL (14.0-18.0); Mean Corpuscular Hemoglobin 30.4 pg (27.0-31.0); Mean Corpuscular Volume 94.9 fl (80.0-94.0); Mean Platelet Volume 7.9 fL (7.4-10.4); Platelet Count 177 thou/uL (130-400); Red Blood Cell (RBC) Count 3.45 mill/uL (4.70-6.10); White Blood Cell (WBC) Count 9.1 thou/uL (4.8-10.8)
[2017-08-08] MEDS: Famotidine 20 MG TAB PO SCH (08:42)
[2017-08-08] MEDS: Multivitamin W/ Minerals 1 TAB PO SCH (08:42)
[2017-08-08] MEDS: Fish Oil 1,000 MG CAP PO SCH (08:42)
[2017-08-08] MEDS: Senokot S 8.6-50 MG TAB PO SCH (08:43)
[2017-08-08] MEDS: Ferrous Gluconate 324 MG TAB PO SCH (08:43)
[2017-08-08] MEDS: Lisinopril 20 MG TAB PO SCH (08:43)
[2017-08-08] MEDS: Aspirin 325 MG TAB PO SCH (08:43)
[2017-08-08] MEDS ORDERED: HYDROcodone/Acetaminophen 10/325 mg Tablet PO PRN ×2 (10:11)
[2017-08-08 11:54] VITALS: BP 119/68; TEMP 98.2
== END 2017-08-08 14:37 | disposition home or self-care (01) | DRG 470 ==
LOC: SURG A 08-06 05:34 → SJJU 08-06 10:31
PROVIDERS: ADMIT Orthopaedic Surgery; ATTEND Orthopaedic Surgery
PROC: 0SRB019 Replacement of Left Hip Joint with Metal Synthetic Substitute, Cemented, Open Approach (ICD-10-PCS; principal; 2017-08-06)
DX: M16.12 Unilateral primary osteoarthritis, left hip (principal); M90.552 Osteonecrosis in diseases classified elsewhere, left thigh; E66.9 Obesity, unspecified; I10 Essential (primary) hypertension; N40.0 Benign prostatic hyperplasia without lower urinary tract symptoms; Z96.641 Presence of right artificial hip joint; Z68.30 Body mass index [BMI] 30.0-30.9, adult
CPT/HCPCS: 36415; 85027; 90471; 90670; C1776; G0009; G8978-GP-CL; G8979-GP-CJ; G8987-GO-CK; G8988-GO-CI; J1100; J1170; J2001; J2250; J2405; J2704; J3010; J3370; J7050

== ENCOUNTER 2018-10-24 08:29 | Outpatient (CLI) | payer MEDICARE, BC ==
[2018-10-24 09:35] LABS: #Eosinphils 0.3 thou/uL (0.0-0.7); #Lymphocytes 1.3 thou/uL (1.20-3.40); #Monocytes 0.7 thou/uL (0.11-0.59); #Neutrophils 3.5 thou/uL (1.40-6.50); %Basophils 0.2 % (0.0-1.0); %Eosinophils 4.8 % (0.0-10.0); %Lymphocytes 22.2 % (21.0-51.0); %Monocytes 11.9 % (0.0-10.0); %Neutrophils 60.9 % (42.0-75.0); Hemoglobin 14.2 g/dL (14.0-18.0); Mean Corpuscular HGB CONC 32.7 g/dL (32.0-36.0); Mean Corpuscular Hemoglobin 31.8 pg (27.0-31.0); Mean Corpuscular Volume 97.2 fL (78.0-98.0); Mean Platelet Volume 7.9 fL (7.4-10.4); Platelet Count 190 thou/uL (130-400); RBC Distribution Width 12.2 % (11.5-14.5); Red Blood Cell (RBC) Count 4.47 mill/uL (4.70-6.10); White Blood Cell (WBC) Count 5.7 thou/uL (4.8-10.8)
== END 2018-10-24 08:30 | disposition home or self-care (01) ==
LOC: LABBT 08:29
PROVIDERS: ATTEND Orthopaedic Surgery Hand Surgery
DX: Z01.818 Encounter for other preprocedural examination (principal); G56.01 Carpal tunnel syndrome, right upper limb
CPT/HCPCS: 85025; 93005; 93010

== ENCOUNTER 2018-10-27 11:27 | Day surgery (SDC) | payer MEDICARE, BC ==
[2018-10-24 08:27] VITALS: BMI 30.9
[2018-10-27] MEDS ORDERED: Bupivacaine PF 0.5% 30 ML VIAL ONE (13:08)
[2018-10-27] MEDS ORDERED: Betamet Acet/Betamet Na Ph 30 MG/5 ML VIAL ONE (13:08)
[2018-10-27] MEDS ORDERED: Sodium Chloride 0.9% 10 ML ONE (13:09)
[2018-10-27] MEDS ORDERED: Bacitracin Zinc Ointment 30 gm TUBE ONE (13:09)
[2018-10-27] MEDS ORDERED: Fentanyl 100 MCG/2 ML VIAL ONE (14:38)
[2018-10-27] MEDS ORDERED: Ketorolac Tromethamine 30 MG/ML VIAL ONE (16:06)
[2018-10-27] MEDS ORDERED: Lidocaine 1% PF 5 ML VIAL ONE (16:17)
[2018-10-27] MEDS ORDERED: PROPOFOL 200 MG/20 ML VIAL ONE (16:17)
--- NOTE | 2018-10-27 16:46 | OP ---
DATE OF PROCEDURE: 10/27/2018 PREOPERATIVE DIAGNOSIS: Right carpal tunnel syndrome. PROCEDURE PERFORMED: Right carpal tunnel release. SPECIMENS: None. TOURNIQUET TIME: 16 minutes. ESTIMATED BLOOD LOSS: 2 mL. FINDINGS: Very tight transcarpal ligament, early stippling, seen in the median nerve. DESCRIPTION OF PROCEDURE: After the patient had successful general LMA technique, the limb was prepped and draped. We did time-out appropriately and then outlined incision in line with the ring finger from medial lateral as far distal as Mary's cardinal for approximately a centimeter or to 5 mm distal to the volar wrist flexion crease. We carried this incision after inflating the tourniquet to 250 mmHg pressure along this line to the level of the palmaris longus. Entering the transcarpal ligament just ulnar to the palmaris longus in the midportion of the ligament, from there distally under direct visualization, released the ligament. There was a type 1 motor branch takeoff without any injury and it was very much stippling of the median nerve underneath the transverse carpal ligament. Then, from the midportion distally under combination of direct visualization using [place] blade and tenotomy scissors, released the transcarpal ligament. There was no flexor tenosynovitis there were no fluid or calcifications. We then irrigated the area, placed 4 mL Celestone in the wound over the nerve, especially in the area of stippling, and I closed the incision after we released the tourniquet with 4-0 nylon interrupted mattress pattern. The patient left the operating room without evidence of anesthetic or operative complications. Job ID: [id number]
== END 2018-10-27 17:28 | disposition home or self-care (01) ==
LOC: SDC 11:27
PROVIDERS: ATTEND Orthopaedic Surgery Hand Surgery
PROC: 01N50ZZ Release Median Nerve, Open Approach (ICD-10-PCS; principal; 2018-10-27)
DX: G56.01 Carpal tunnel syndrome, right upper limb (principal); Z79.82 Long term (current) use of aspirin; Z79.899 Other long term (current) drug therapy
CPT/HCPCS: J0690; J0702; J1885; J3010; J3490; S0020

== ENCOUNTER 2019-05-20 07:56 | Outpatient (CLI) | payer MEDICARE, BC ==
[2019-05-20 15:20] LABS: #Eosinphils 0.3 thou/uL (0.0-0.7); #Lymphocytes 1.8 thou/uL (1.20-3.40); #Monocytes 0.9 thou/uL (0.11-0.59); #Neutrophils 6.1 thou/uL (1.40-6.50); %Basophils 0.4 % (0.0-1.0); %Lymphocytes 19.3 % (21.0-51.0); %Monocytes 9.6 % (0.0-10.0); %Neutrophils 67.6 % (42.0-75.0); Hemoglobin 14.6 g/dL (14.0-18.0); Mean Corpuscular HGB CONC 31.2 g/dL (32.0-36.0); Mean Corpuscular Hemoglobin 29.9 pg (27.0-31.0); Mean Corpuscular Volume 95.8 fL (78.0-98.0); Mean Platelet Volume 8.2 fL (7.4-10.4); Platelet Count 200 thou/uL (130-400); RBC Distribution Width 11.7 % (11.5-14.5); Red Blood Cell (RBC) Count 4.88 mill/uL (4.70-6.10); White Blood Cell (WBC) Count 9.1 thou/uL (4.8-10.8)
== END 2019-05-20 07:57 | disposition home or self-care (01) ==
LOC: LABBT 07:56
PROVIDERS: ATTEND Orthopaedic Surgery Hand Surgery
DX: Z01.818 Encounter for other preprocedural examination (principal); M65.311 Trigger thumb, right thumb
CPT/HCPCS: 85025; 93005; 93010

== ENCOUNTER 2019-05-22 05:43 | Day surgery (SDC) | payer MEDICARE, BC ==
[2019-05-20 14:43] VITALS: BMI 30.9
[2019-05-22] MEDS ORDERED: Bupivacaine PF 0.5% 30 ML VIAL ONE (06:17)
[2019-05-22] MEDS ORDERED: Betamet Acet/Betamet Na Ph 30 MG/5 ML VIAL ONE (06:17)
[2019-05-22] MEDS ORDERED: Bacitracin Zinc Ointment 30 gm TUBE ONE (06:17)
[2019-05-22] MEDS ORDERED: Fentanyl 100 MCG/2 ML VIAL ONE (06:18)
[2019-05-22] MEDS ORDERED: Ketorolac Tromethamine 30 MG/ML VIAL ONE (08:22)
--- NOTE | 2019-05-22 08:39 | OP ---
DATE OF PROCEDURE: 05/22/2019 PREOPERATIVE DIAGNOSIS: Right trigger thumb. POSTOPERATIVE DIAGNOSIS: Right trigger thumb. FINDINGS: Very thick A1 ryan, very tight compression. No tenosynovitis. ANESTHESIA: Doctor and COMMISSARY AGENT, [place] Anesthesia. DESCRIPTION OF PROCEDURE: After successful general LMA technique, the limb was prepped and draped. The incision was outlined in a zigzag Isauro type fashion over the more central to radial. We then gave the patient 10 mL of 0.5% Marcaine in a jacqui-incisional block, exsanguinated the limb and inflated tourniquet to 250 mmHg pressure. The incision was carried through skin and subcutaneous tissue, and we identified both the radial and ulnar branches of the digital nerve, protected them from the middle of the field. We then identified a very thick (3.5 mm thick) A1 ryan, which were released in the midline under direct visualization, protecting the nerve using a [place] blade. We then lifted up the tendon, found no mass to include ganglion either in the tendon or underneath the tendon or in the ryan. Resected the central 1.5 mm of the ryan to prevent recurrence, irrigated the area, placed 3 mL of Celestone and deflated the tourniquet. We obtained hemostasis, closed the wound with a simple technique using 4-0 nylon. Bulky dressing was applied, which just before gave the patient additional 5 mL of 0.5% Marcaine. Job ID: [id number]
[2019-05-22] MEDS ORDERED: Ondansetron PF 4 MG/2 ML Vial ONE (09:26)
[2019-05-22] MEDS ORDERED: PROPOFOL 200 MG/20 ML VIAL ONE (09:26)
[2019-05-22] MEDS ORDERED: Lidocaine 1% PF 5 ML VIAL ONE (09:26)
== END 2019-05-22 10:04 | disposition home or self-care (01) ==
LOC: SDC 05:43
PROVIDERS: ATTEND Orthopaedic Surgery Hand Surgery
PROC: 0LN70ZZ Release Right Hand Tendon, Open Approach (ICD-10-PCS; principal; 2019-05-22)
DX: M65.311 Trigger thumb, right thumb (principal); Z79.82 Long term (current) use of aspirin; Z79.899 Other long term (current) drug therapy; Z96.643 Presence of artificial hip joint, bilateral
CPT/HCPCS: J0690; J0702; J1885; J2001; J2405; J2704; J3010; J3490; S0020

== ENCOUNTER 2020-03-31 06:33 | Outpatient (CLI) | payer MEDICARE, BC ==
[2020-03-31 10:34] LABS: #Eosinphils 0.3 10x3/uL (0.0-0.5); #Monocytes 0.6 10x3/uL (0.0-1.1); #Neutrophils 3.6 10x3/uL (1.5-8.4); %Basophils 0.4 % (0.0-2.0); %Eosinophils 4.4 % (0.0-6.0); %Lymphocytes 20.1 % (18.0-47.0); %Monocytes 11.4 % (0.0-10.0); %Neutrophils 63.2 % (40.0-75.0); Mean Corpuscular HGB CONC 32.5 G/DL (32.0-36.0); Mean Corpuscular Hemoglobin 30.6 PG (27.0-33.0); Mean Corpuscular Volume 94.1 fl (80.0-100.0); Mean Platelet Volume 10.9 fl (7.4-10.4); Platelet Count 180 10x3/uL (130-400); RBC Distribution Width 13.2 % (11.5-14.5); Red Blood Cell (RBC) Count 4.58 10x6/uL (4.40-5.80); White Blood Cell (WBC) Count 5.6 10x3/uL (4.5-11.0)
[2020-03-31 10:49] LABS: Bilirubin Neg (Negative); Blood, Urine Negative (Negative); Clarity Clear (Clear); Glucose, Urine (Dipstick) Normal (Negative); Ketone, Urine Negative (Negative); Leukocyte Negative (Negative); Nitrite Negative (Negative); Protein, Urine (Dipstick) Negative (Neg-Trace); Specific Gravity, Urine 1.015 (1.002-1.036); Urobilinogen Normal mg/dL (Less than 2); pH, Urine 6.5 (5.0-9.0)
[2020-03-31 11:49] LABS: Bacteria/HPF None Seen HPF (None Seen); RBC/HPF 0-3 HPF (0-3); Squamous Epithelial None Seen HPF (0-3); WBC/HPF None Seen HPF (0-3)
[2020-03-31 19:01] LABS: SARS-CoV-2 MS2 Positive; SARS-CoV-2 N Gene Negative; SARS-CoV-2 S Gene Negative; SARS-CoV-2 by NAA Not Detected (NotDetected); SARS-CoV-2 orf1ab Negative
--- NOTE | 2020-04-01 07:15 | EKG ---
Test Reason : Blood Pressure : / mmHG Vent. Rate : 063 BPM Atrial Rate : 063 BPM P-R Int : 156 ms QRS Dur : 078 ms QT Int : 412 ms P-R-T Axes : 064 060 048 degrees QTc Int : 421 ms Sinus rhythm with PVC Otherwise normal ECG No previous ECGs available Confirmed by DR. Marilee SHABAZZ ([id number]) on 04/01/2020 7:15:30 AM Referred By: KEANU Confirmed By:DR. Marilee SHABAZZ
== END 2020-03-31 06:34 | disposition home or self-care (01) ==
LOC: LABBT 06:33
PROVIDERS: ATTEND Orthopaedic Surgery Hand Surgery
DX: Z01.818 Encounter for other preprocedural examination (principal); Z01.812 Encounter for preprocedural laboratory examination; G56.02 Carpal tunnel syndrome, left upper limb; R22.32 Localized swelling, mass and lump, left upper limb; Z20.828 Contact with and (suspected) exposure to other viral communicable diseases
CPT/HCPCS: 81001; 85025; 93005; U0003; 87635; 93010

== ENCOUNTER 2020-04-05 06:56 | Day surgery (SDC) | payer MEDICARE, BC ==
[2020-04-04 12:06] VITALS: BMI 30.7
[2020-04-05] MEDS ORDERED: Sodium Chloride 0.9% 10 ML ONE (08:33)
[2020-04-05] MEDS ORDERED: Bacitracin Zinc Ointment 30 gm TUBE ONE (08:33)
[2020-04-05] MEDS ORDERED: Bupivacaine PF 0.5% 30 ML VIAL ONE (08:33)
[2020-04-05] MEDS ORDERED: Betamet Acet/Betamet Na Ph 30 MG/5 ML VIAL ONE (08:33)
[2020-04-05] MEDS ORDERED: Dexamethasone 20 MG/5 ML VIAL ONE (10:35)
[2020-04-05] MEDS ORDERED: ePHEDrine 50 MG/ML VIAL ONE (10:35)
[2020-04-05] MEDS ORDERED: Lidocaine 1% PF 5 ML VIAL ONE (10:35)
[2020-04-05] MEDS ORDERED: PROPOFOL 200 MG/20 ML VIAL ONE (10:35)
[2020-04-05] MEDS ORDERED: Ondansetron PF 4 MG/2 ML Vial ONE (10:35)
[2020-04-05] MEDS ORDERED: Ketorolac Tromethamine 30 MG/ML VIAL ONE (10:35)
--- NOTE | 2020-04-05 11:36 | OP ---
DATE OF PROCEDURE: 04/05/2020 PREOPERATIVE DIAGNOSES: 1. Left carpal tunnel syndrome. 2. Left index finger nail fold mass, possible ganglion. POSTOPERATIVE DIAGNOSES: 1. Left carpal tunnel syndrome. 2. Left index finger nail fold mass, possible ganglion. 3. Possible cyst from viral infection such as herpes as well as ganglion. PROCEDURES PERFORMED: 1. Left carpal tunnel release. 2. Left index finger nail removal. 3. Excision, benign mass, 0.5 to 1.0 cm, left index finger. SPECIMENS SENT: Nail fold mass to the actual nail with the ulnar ridge. ESTIMATED BLOOD LOSS: 5 mL. TOURNIQUET TIME: 29 minutes at 250 mmHg. FINDINGS: 1. Again, nail fold, 2 mm through the dermis and 2 mm subdermal mass consistent with a cyst making it a total of 4 mm, underlying gel-like fluid filling at the left ulnar nail fold, dorsal left index finger. 2. Median nerve with hourglass formation and stippling over a 1 cm area in the center of the transverse carpal ligament. DESCRIPTION OF PROCEDURE: After successful general endotracheal anesthesia, the limb was prepped and draped. We then outlined a zigzag incision of the nail fold, which would incorporate the mass completely and allow for rotation of skin to fill the defect. Then, we outlined a standard carpal tunnel incision beginning at Mary's cardinal line distally and going to 5 to 6 mm distal to volar wrist flexion crease in line with the ring finger. First, we performed the nail surgery. We made the incision and we opened the skin. There was gel-like fluid escape from underneath the mass. We saw that it had a 2 to 3 mm area subdermal. We found a small extension of the mass ulnarly, but we could not find any connection to the joint and there was no subcutaneous fullness under the nail fold indicative of underlying mass. It is of note on the MRI that there was no mass seen whatsoever. We then excised the entire cystic area along with the distal 1 mm nail fold around it and covered this with a moist sponge. The nail mass along with the nail fold was sent immediately for fresh frozen while a [place] smear was made of the fluid and the nail itself will be sent later to pathology. This has had a very prominent ulnar side ridge. We now turned our attention to the transverse carpal ligament area, where we incised the incision, which was 2.5 cm long, carried through skin and subcutaneous tissue, identified, with retraction, the transverse carpal ligament. We opened the transverse carpal ligament just ulnar to align, formed by the palmaris longus tendon insertion and carried this through the tight transcarpal ligament to visualize the nerve and tendons. We then under direct visualization released the ligament distally and did not cause any damage to nerve branches and then under direct visualization, using increased retraction and elevation, visualized transverse carpal ligament proximally and released it with combination of [place] blade and scissors. Celestone was placed on the nerve because we saw an area of stippling with hourglass formation almost 1 cm long. The patient then had tourniquet deflated, obtained hemostasis, and closed the wound after placing Celestone in the area of the inflamed nerve with 4-0 nylon interrupted mattress pattern. The patient left the operating room with bulky dressing on the carpal tunnel and with excellent circulation on the index finger. We placed a finger tube gauze dressing with Coban. He left the operating room without evidence of anesthetic or operative complications. Job ID: [id number]
== END 2020-04-05 11:42 | disposition home or self-care (01) ==
LOC: SDC 06:56
PROVIDERS: ATTEND Orthopaedic Surgery Hand Surgery
PROC: 01N50ZZ Release Median Nerve, Open Approach (ICD-10-PCS; principal; 2020-04-05)
PROC: 0JBK0ZZ Excision of Left Hand Subcutaneous Tissue and Fascia, Open Approach (ICD-10-PCS; 2020-04-05)
PROC: 0HTQXZZ Resection of Finger Nail, External Approach (ICD-10-PCS; 2020-04-05)
DX: G56.02 Carpal tunnel syndrome, left upper limb (principal); R22.32 Localized swelling, mass and lump, left upper limb; I10 Essential (primary) hypertension; Z79.82 Long term (current) use of aspirin; Z79.899 Other long term (current) drug therapy
CPT/HCPCS: 88112; 88304; 88305; 88311; 88312; 88331; J0690; J0702; J1100; J1885; J2405; J2704; J3490; S0020